=== PATIENT | male | born 1965 | race African-American/Black ===

== ENCOUNTER 2017-10-11 13:14 | Emergency (ER) | payer MEDICAID ==
[~2017-10-11] VITALS: Ht 167.6 cm; Wt 91.0 kg
[2017-10-11] MEDS ORDERED: HYDROCODONE/ACETAMINOPHEN 5/325MG TABLET PO ONE (16:30)
[2017-10-11 16:35] VITALS: BP 141/81
== END 2017-10-11 17:49 | disposition home or self-care (01) ==
LOC: ER 13:49
DX: M25.562 Pain in left knee (principal); M25.511 Pain in right shoulder
CPT/HCPCS: 73562; 99284